=== PATIENT | female | born 1990 | race Two or more races ===

== ENCOUNTER 2023-10-31 01:25 | Emergency (ER) | payer MEDICAID, OTHER ==
[~2023-10-31] VITALS: Ht 152.4 cm; Wt 113.6 kg
[2023-10-31] MEDS ORDERED: AMOX500C2 PO (02:52)
[2023-10-31 03:00] VITALS: BP 155/103; PULSE 108; RESP 18; TEMP 98.6; O2SAT 99
== END 2023-10-31 03:00 | disposition home or self-care (01) ==
LOC: ER 01:25
DX: O26.893 Other specified pregnancy related conditions, third trimester (principal); H66.92 Otitis media, unspecified, left ear; Z3A.31 31 weeks gestation of pregnancy

== ENCOUNTER 2023-11-06 11:40 | Emergency (ER) | payer MEDICAID ==
[~2023-11-06] VITALS: Ht 152.4 cm; Wt 114.0 kg
[~2023-11-06 11:40] MED LIST: AMOX500C2 PO
[2023-11-06 12:43] VITALS: BP 125/81; PULSE 102; TEMP 97.4
[2023-11-06 14:21] VITALS: RESP 18; O2SAT 97
[2023-11-06] MEDS: ALBUTEROL SULF 2.5 MG/0.5ML(0.5%) NEB SOLN NEB ONE (14:23)
[2023-11-06] MEDS ORDERED: CEPH500C PO (15:20)
[2023-11-06] MEDS ORDERED: ALBUAER3 IN (15:20)
== END 2023-11-06 15:25 | disposition home or self-care (01) ==
LOC: ER 11:40
DX: O26.893 Other specified pregnancy related conditions, third trimester (principal); H66.93 Otitis media, unspecified, bilateral; B34.9 Viral infection, unspecified; R05.3 Chronic cough; Z3A.32 32 weeks gestation of pregnancy
CPT/HCPCS: 94640

== ENCOUNTER 2023-11-20 16:15 | Inpatient (IN) | payer MEDICAID ==
[~2023-11-20] VITALS: Ht 152.4 cm; Wt 119.3 kg
[~2023-11-20 16:15] MED LIST changes: +ALBUAER3 IN; +CEPH500C PO
[2023-11-20] MEDS ORDERED: hydrALAZINE HCL 20 MG/ML VL IV PRN (17:15)
[2023-11-20] MEDS ORDERED: LABETALOL HCL 5 MG/ML 4ML SYRINGE IV PRN ×3 (17:15→17:30)
[2023-11-20] MEDS ORDERED: ceFAZolin 2 GM/D5W50ml 50 ML IV ONE (17:15)
[2023-11-20] MEDS ORDERED: MAGNESIUM SULFATE 40MG/ML 1,000 ML IV ONE (17:24)
[2023-11-20] MEDS ORDERED: MAGNESIUM SULFATE 100 ML IV ONE (17:30)
[2023-11-20] MEDS ORDERED: LACTATED RINGER'S 1,000 ML IV SCH (17:30)
[2023-11-20 17:41] LABS: Basophils # (auto) 0 10 ^3/uL (0-0.2); Basophils % (auto) 0.4 % (0.0-2.0); Eosinophils # (auto) 0.2 10 ^3/uL (0-0.8); Eosinophils % (auto) 1.5 % (0.0-7.0); Hematocrit 37.2 % (36.0-46.0); Hemoglobin 12.3 g/dL (12.2-16.2); Lymphocytes # (auto) 1.7 10 ^3/uL (0.4-5.4); Mean Corpuscular Hemoglobin 29.5 pg (28.0-32.0); Mean Corpuscular Hgb Conc. 33.1 g/dL (32.0-36.0); Mean Corpuscular Volume 89.1 fL (80.0-100.0); Monocytes # (auto) 0.9 10 ^3/uL (0-1.3); Neutrophils # (auto) 7.9 10 ^3/uL (1.6-8.6); Neutrophils % (auto) 74.1 % (37.0-80.0); Red Blood Cells 4.18 10^6/uL (4.0-5.20); White Blood Cell 10.7 10^3/uL (4.4-10.8)
[2023-11-20 17:59] LABS: INR 0.9 (0.9-1.15); Partial Thromboplastin Time 27.3 SEC (24.5-34.5); Prothrombin Time 9.5 sec (9.3-11.8)
[2023-11-20] MEDS: MAGNESIUM SULFATE 100 ML IV ONE (18:08)
[2023-11-20] MEDS: hydrALAZINE HCL 20 MG/ML VL ONE (18:09)
[2023-11-20] MEDS: MAGNESIUM SULFATE 40MG/ML 1,000 ML IV SCH (18:09)
[2023-11-20] MEDS: LACTATED RINGER'S 1,000 ML IV SCH (18:11)
[2023-11-20 18:16] LABS: Alanine Aminotransferase 18 U/L (7-40); Albumin 3.3 g/dL (3.2-4.8); Alkaline Phosphatase 116 U/L (46-116); Anion Gap 7 (5-15); Aspartate Aminotransferase 29 U/L (13-40); BUN/Creatinine Ratio 17.7 (10.0-20.0); Blood Urea Nitrogen 11 mg/dL (9-23); Calcium 8.9 mg/dL (8.5-10.1); Carbon Dioxide 21 mmol/L (20-30); Chloride 110 mmol/L (98-107); Glucose 100 mg/dL (74-106); Potassium 3.9 mmol/L (3.5-5.1); Sodium 138 mmol/L (136-145)
[2023-11-20 18:17] LABS: Bilirubin, Total 0.6 mg/dL (0.2-1.0); Total Protein 5.9 g/dL (5.7-8.2)
[2023-11-20] MEDS: hydrALAZINE HCL 20 MG/ML VL IV PRN (18:17)
[2023-11-20 18:18] LABS: Uric Acid 4.8 mg/dL (3.1-7.8)
[2023-11-20 18:25] LABS: Protein, Urine 227.4 mg/dL (0.0-11.9)
[2023-11-20 18:27] LABS: Amphetamine Screen, Urine Neg (NEGATIVE); Barbiturate Scree,Urine Neg (NEGATIVE); Benzodiazephine Screen, Urine Neg (NEGATIVE); Cannabinoid Screen, Urine Neg (NEGATIVE); Cocaine Screen, Urine Neg (NEGATIVE); Creatinine, Urine 184.91 mg/dL (30.0-125.0); Opiate Scree,Urine Neg (NEGATIVE); Phencyclidine Screen, Urine Neg (NEGATIVE); Urine Protein/Creatinine Ratio 1.23
[2023-11-20 18:36] LABS: Urine Bacteria FEW /hpf (None Seen); Urine Blood 1+ /uL (Negative); Urine Clarity HAZY (Clear); Urine Color Yellow (Yellow); Urine Mucus FEW (None Seen); Urine Protein, UAD 2+ (Negative); Urine Specific Gravity 1.032 (1.001-1.035); Urine WBC 3 /hpf (0 - 5)
[2023-11-20] MEDS: BETAMETHASONE ACET (30mg/5ml) 5ml Vial 6mg/ml IM ONE (18:55)
[2023-11-20] MEDS: LABETALOL HCL 200 MG TAB PO ONE (18:59)
[2023-11-23 09:06] LABS: RPR Non Reactive (Non Reactive)
== END 2023-11-20 20:20 | disposition short-term general hospital (02) | DRG 566 ==
LOC: LDRP 16:15 → OBSVTOIN 17:18 → LDRP 18:30
PROVIDERS: ADMIT Obstetrics & Gynecology; ATTEND Obstetrics & Gynecology
DX: O13.3 Gestational [pregnancy-induced] hypertension without significant proteinuria, third trimester (principal); O24.419 Gestational diabetes mellitus in pregnancy, unspecified control; E66.01 Morbid (severe) obesity due to excess calories; O99.213 Obesity complicating pregnancy, third trimester; Z3A.34 34 weeks gestation of pregnancy; Z86.19 Personal history of other infectious and parasitic diseases
CPT/HCPCS: 36415; 59025; 76805; 76818; 80053; 80307; 81001; 81002; 82570; 82948; 82962; 83615; 84156; 84550; 85025; 85362; 85379; 85384; 85610; 85730; 86592; 86850; 86900; 86901; 94760; 96360; 96361; 96365; 96366; 96372; 96374; 96375; G0378